=== PATIENT | male | born 1985 | race Hispanic/Latino ===

== ENCOUNTER 2023-11-25 15:36 | Emergency (ER) | payer BC, SELFPAY ==
[2023-11-25 15:51] VITALS: BP 113/75; PULSE 112; RESP 16; TEMP 38.1; O2SAT 96
--- NOTE | 2023-11-25 15:58 | ED.URI ---
HPI - URI/Sore Throat General Chief Complaint: Upper Respiratory Infection Stated Complaint: Sore Throat/Fever/Cough History of Present Illness HPI Narrative: 38 y/o male presented for c/o cough, fever and sore throat intermittently since last week. Symptoms worsened yesterday. States cough was forceful and caused him to vomit last night at today. Temp >100 at home. No meds for symptoms. Denies sick contacts. Denies chest pain, sob, wheezing, or lethargy. Related Data Home Medications Medication Instructions Recorded Confirmed No Home Medications 11/25/23 11/25/23 Allergies Allergy/AdvReac Type Severity Reaction Status Date / Time No Known Allergies Allergy Verified 11/25/23 16:13 Review of Systems Review of Systems: CONSTITUTIONAL: Denies body aches, reports fever. EYES: Denies visual changes, redness, or discharge. ENT: reports sore throat, rhinorrhea, congestion, denies otalgia. CARDIOVASCULAR: Denies chest pain, palpitations, or edema. RESPIRATORY: reports cough Denies dyspnea. GASTROINTESTINAL: Denies abdominal pain, nausea, or diarrhea. SKIN: Denies rash, itching, or wounds. MUSCULOSKELETAL: Denies back pain, joint pain NEUROLOGIC: Denies headache PMFSH Family History Family History Mother Depression Sibling Depression Social History Social History Smoking status: Never smoker Alcohol intake: never Exam Narrative: GENERAL: mildly Ill-appearing, no acute distress. EYES: conjunctivae clear ENT: Mucous membranes moist. TM pearly vo with normal light reflex bilaterally; no tragal tenderness. Oropharynx not erythematous without lesions. No drooling, no hoarseness, no trismus, uvula midline. No tripod positioning, hot potato voice, or soft palate swelling. NECK: Supple. No lymphadenopathy CHEST: Clear to auscultation, breath sounds equal. No respiratory distress, speaks in full sentences. HEART: Regular rate and rhythm. No murmur heard. SKIN: Warm, dry, no rash. NEURO: Alert and oriented x3. Course Course Emergency Course: Patient is aware of diagnosis, understands and agrees to treatment plan. Anticipatory guidance given. Patient agrees to follow-up as directed and is aware of reasons to seek care at the emergency department. Portions of this record may have been created with voice recognition software Level of Care: Express Care Visit Vital Signs Vital signs: Vital Signs Temperature 100.6 F H 11/25/23 15:51 Pulse Rate 112 H 11/25/23 15:51 Respiratory Rate 16 11/25/23 15:51 Blood Pressure 113/75 11/25/23 15:51 Pulse Oximetry 96 11/25/23 15:51 Oxygen Delivery Room Air 11/25/23 15:51 Temperature 100.6 F H 11/25/23 15:51 Pulse Rate 112 H 11/25/23 15:51 Respiratory Rate 16 11/25/23 15:51 Blood Pressure 113/75 11/25/23 15:51 Pulse Oximetry 96 11/25/23 15:51 Oxygen Delivery Room Air 11/25/23 15:51 MDM - URI/Sore Throat MDM Narrative Medical decision making narrative: POS covid; neg flu, strep result reviewed with pt. Advise supportive treatments. Patient is appropriate for outpatient treatment and follow-up. Differential Diagnosis Differential diagnosis: Likely upper respiratory infection, viral infection and pharyngitis Discharge Plan Discharge Clinical Impression: COVID-19 Patient Disposition: Home, Self-Care Condition: Stable Instructions: COVID-19 (Coronavirus Disease 2019) (ED) Additional Instructions: Your rapid COVID test was positive today. The following updated recommendations have been made by the CDC and local Health Departments, regarding COVID-19: - When people get sick with a respiratory virus, they stay home and away from others. - Return to normal activities when, for at least 24 hours, symptoms are improving overall, and if a fever was present, it has been gone without use of a
== END 2023-11-25 15:53 | disposition home or self-care (01) ==
PROVIDERS: Emergency Provider Nurse Practitioner Family; PCP Nurse Practitioner
DX: U07.1 COVID-19 (principal)
CPT/HCPCS: 87081; 87426; 87804; 87880; 99213; G0463